=== PATIENT | male | born 1955 | race Caucasian/White ===

== ENCOUNTER → 2019-10-26 | Outpatient (CLI) | payer MEDICARE, BC | END | disposition home or self-care (01) | LOC: LAB SHORT 12:13 → PLD 12:13 | DX: D23.61 Other benign neoplasm of skin of right upper limb, including shoulder (principal); L82.1 Other seborrheic keratosis | CPT/HCPCS: 88305 ==

== ENCOUNTER 2022-06-10 07:39 | Day surgery (SDC) | payer MEDICARE ==
[~2022-06-10] VITALS: Ht 190.5 cm; Wt 102.0 kg
[2022-06-10] MEDS ORDERED: Aspir 8181 MG (07:59)
[2022-06-10] MEDS ORDERED: DUTA.5 (08:00)
[2022-06-10] MEDS ORDERED: DOXA1 (08:00)
== END 2022-06-10 10:05 | disposition home or self-care (01) ==
LOC: ORSCSDS 07:39
PROVIDERS: Internal Medicine Gastroenterology
PROC: 0DBM8ZX Excision of Descending Colon, Via Natural or Artificial Opening Endoscopic, Diagnostic (ICD-10-PCS; principal; 2022-06-10 09:00)
PROC: 0DBK8ZX Excision of Ascending Colon, Via Natural or Artificial Opening Endoscopic, Diagnostic (ICD-10-PCS; principal; 2022-06-10 09:00)
DX: Z12.11 Encounter for screening for malignant neoplasm of colon (principal); Z86.010 Personal history of colon polyps; K57.30 Diverticulosis of large intestine without perforation or abscess without bleeding; D12.2 Benign neoplasm of ascending colon; D37.4 Neoplasm of uncertain behavior of colon; R13.10 Dysphagia, unspecified; Z79.82 Long term (current) use of aspirin; Z79.899 Other long term (current) drug therapy
CPT/HCPCS: 88305; J2704; J7120